=== PATIENT | female | born 1995 | race Hispanic/Latino ===

== ENCOUNTER 2018-09-06 03:09 | Inpatient (IN) | payer BC, MEDICAID ==
[2018-09-06] VITALS (9 sets, daily range): BP systolic 109–154; BP diastolic 69–93
[~2018-09-06] VITALS: Ht 165.1 cm; Wt 107.5 kg
[~2018-09-06 03:09] MED LIST: PNV1TABL17 PO
[2018-09-06] MEDS ORDERED: LACTATED RINGERS 1000ML 1,000 ML IV SCH (03:30)
[2018-09-06] MEDS ORDERED: LACTATED RINGERS 1000ML 1,000 ML IV PRN (03:46)
[2018-09-06 03:47] LABS: APPEARANCE,URINE Clear (CLEAR); BILIRUBIN,URINE Negative (NEGATIVE); COLOR,URINE Yellow (YELLOW); GLUCOSE, URINE (UA) Negative (NEGATIVE); KETONES,URINE Negative (NEGATIVE); LEUKOCYTE ESTERASE ,URINE Negative (NEGATIVE); NITRATE,URINE Negative (NEGATIVE); OCCULT BLOOD,URINE Negative (NEGATIVE); PROTEIN,URINE Trace (NEGATIVE)
[2018-09-06] MEDS ORDERED: AMPICILLIN 2GM+NS 100ML 100 ML IV SCH (04:00)
[2018-09-06] MEDS ORDERED: OXYTOCIN-LR 20 UNITS/1000 ML 1,000 ML IV SCH ×2 (04:00→06:30)
[2018-09-06 04:05] LABS: HEMATOCRIT 33.9 % (36-48); MEAN CORPUSCULAR HGB CONC 31.7 g/dL (32.0-36.0); MEAN CORPUSCULAR VOLUME 81.9 fL (79-99); PLATELET COUNT (AUTO) 178 K/uL (130-400); RED BLOOD CELL COUNT(AUTO) 4.14 MIL/uL (4.00-5.50); RED CELL DISTRIBUTION WIDTH 14.6 % (11.0-15.5); WHITE BLOOD COUNT (AUTO) 7.9 K/uL (4.8-10.8)
[2018-09-06] MEDS ORDERED: NALOXONE HCL 0.4 MG/1 ML ML IV PRN (04:15)
[2018-09-06] MEDS ORDERED: ROPIVACAINE 0.2%200ML EPIDURAL 200 ML EP SCH (04:15)
[2018-09-06] MEDS ORDERED: EPHEDRINE SULFATE 50 MG/ML AMPULE IVP PRN (04:15)
[2018-09-06] MEDS ORDERED: LACTATED RINGERS 500 ML 500 ML IV PRN (04:15)
[2018-09-06] MEDS ORDERED: LACTATED RINGERS 1000ML 1,000 ML IV ONE (04:20)
[2018-09-06] MEDS ORDERED: OXYTOCIN 10 USP UNITS/ML ONE (04:20)
[2018-09-06] MEDS ORDERED: LIDOCAINE 2%-EPI 1:200,000 20 ML VIAL IJ ONE (04:41)
[2018-09-06 06:06] LABS: AMPHET/METH SCREEN,URINE NEGATIVE (NEGATIVE); BARBITURATE SCREEN, URINE NEGATIVE (NEGATIVE); BENZODIAZEPINES SCREEN,URINE NEGATIVE (NEGATIVE); CANNABINOID SCREEN,URINE NEGATIVE (NEGATIVE); COCAINE SCREEN,URINE NEGATIVE (NEGATIVE); OPIATE SCREEN,URINE NEGATIVE (NEGATIVE); PHENCYCLIDINE SCREEN,URINE NEGATIVE (NEGATIVE)
[2018-09-06] MEDS ORDERED: OXYTOCIN 10 USP UNITS/ML 20 UNIT in LACTATED RINGERS 1000ML 1,000 ML IV SCH (06:15)
[2018-09-06] MEDS ORDERED: AMPICILLIN 1GM+NS 50ML 50 ML IV SCH (08:00)
[2018-09-06] MEDS ORDERED: BENZOCAINE/LANOLIN/ALOE VERA 60 ML AEROSOL TP PRN (10:00)
[2018-09-06] MEDS ORDERED: ACETAMINOPHEN 325 MG TAB PO PRN (10:00)
[2018-09-06] MEDS: IBUPROFEN 600 MG TABLET PO PRN (15:38)
[2018-09-06 17:15] LABS: RAPID PLASMA REAGIN NONREACTIVE (NONREACTIVE)
[2018-09-06] MEDS: DOCUSATE SODIUM 100 MG CAP PO SCH (21:47)
[2018-09-07 00:15] VITALS: BP 110/53
[2018-09-07] MEDS: IBUPROFEN 600 MG TABLET PO PRN ×2 (00:34→08:59)
[2018-09-07 03:17] VITALS: BP 120/63
[2018-09-07 05:20] LABS: HEMATOCRIT 32.4 % (36-48); MEAN CORPUSCULAR HEMOGLOBIN 26.9 pg (27.0-33.0); MEAN CORPUSCULAR HGB CONC 32.5 g/dL (32.0-36.0); MEAN CORPUSCULAR VOLUME 82.6 fL (79-99); PLATELET COUNT (AUTO) 160 K/uL (130-400); RED BLOOD CELL COUNT(AUTO) 3.92 MIL/uL (4.00-5.50); RED CELL DISTRIBUTION WIDTH 14.7 % (11.0-15.5); WHITE BLOOD COUNT (AUTO) 7.8 K/uL (4.8-10.8)
[2018-09-07 07:35] VITALS: BP 125/82
[2018-09-07] MEDS: DOCUSATE SODIUM 100 MG CAP PO SCH (08:58)
[2018-09-07 11:24] LABS: HEPATITIS Bs ANTIGEN SCREEN P Negative (Negative)
[2018-09-07 11:41] VITALS: BP 125/71
--- NOTE | 2018-09-07 14:10 | NUR ---
DISCHARGE PATIENT LEFT UNIT VIA WHEELCHAIR WITH BABY IN ARMS . PERSONAL VEHICLE USED FOR TRANSPORTATION, BABY SECURE IN CARSEAT. NO COMPLAINTS OR CONCERNS ADDRESSED FROM PATIENT ON DISCHARGE.
--- NOTE | 2018-09-07 14:26 | NUR ---
RHOGAM RHOGAM ADMINISTERED TO RIGHT GLUTEAL. NO BLOOD RETURN ON ASPIRATION. PATIENT TOLERATED WELL.
== END 2018-09-07 14:10 | disposition home or self-care (01) | DRG 807 ==
LOC: EDH 03:09 → OBSVTOIN 03:10 → LDH 03:10 → WSH 07:35
PROVIDERS: ADMIT Obstetrics & Gynecology; ATTEND Obstetrics & Gynecology
PROC: 10E0XZZ Delivery of Products of Conception, External Approach (ICD-10-PCS; principal; 2018-09-06)
PROC: 3E0R3BZ Introduction of Anesthetic Agent into Spinal Canal, Percutaneous Approach (ICD-10-PCS; 2018-09-06)
PROC: 00HU33Z Insertion of Infusion Device into Spinal Canal, Percutaneous Approach (ICD-10-PCS; 2018-09-06)
PROC: 10907ZC Drainage of Amniotic Fluid, Therapeutic from Products of Conception, Via Natural or Artificial Opening (ICD-10-PCS; 2018-09-06)
PROC: 3E0234Z Introduction of Serum, Toxoid and Vaccine into Muscle, Percutaneous Approach (ICD-10-PCS; 2018-09-07)
DX: O80 Encounter for full-term uncomplicated delivery (principal); Z37.0 Single live birth; Z3A.40 40 weeks gestation of pregnancy; Z29.13 Encounter for prophylactic Rho(D) immune globulin
CPT/HCPCS: 36415; 80305; 81003; 83033; 85027; 86592; 86701; 86850; 86900; 86901; 87340; 87390; A4314; G0378; J0290; J2590; J2791; J3490; J7120